=== PATIENT | male | born 1970 | race Caucasian/White ===

== ENCOUNTER → 2023-10-14 14:52 | Outpatient (REF) | payer OTHER, SELFPAY | LOC: DHCBS MAIN 14:52 | PROVIDERS: ATTENDING PHYSICIAN Internal Medicine Interventional Cardiology; FAMILY PHYSICIAN Family Medicine | DX: I25.5 Ischemic cardiomyopathy (principal) | CPT/HCPCS: 93306 ==

== ENCOUNTER → 2024-03-07 15:34 | Outpatient (REF) | payer OTHER, SELFPAY | LOC: RAD 15:34 | PROVIDERS: ATTENDING PHYSICIAN Nurse Practitioner; FAMILY PHYSICIAN Family Medicine | DX: J01.00 Acute maxillary sinusitis, unspecified (principal); R05.8 Other specified cough | CPT/HCPCS: 71046 ==

== ENCOUNTER → 2025-03-20 16:14 | Outpatient (REF) | payer OTHER, SELFPAY | LOC: RAD 16:14 | PROVIDERS: ATTENDING PHYSICIAN Surgery; FAMILY PHYSICIAN Family Medicine | DX: R40.1 Stupor (principal) | CPT/HCPCS: 76770 ==